=== PATIENT | female | born 1955 | race Caucasian/White ===

== ENCOUNTER 2018-06-07 12:59 | Observation (INO) | payer BC ==
[~2018-06-07] VITALS: Ht 157.5 cm; Wt 125.0 kg
[~2018-06-07 12:59] MED LIST: ACYCLOVIR400 MG PO; ARIMIDEX1 MG PO; ASPIRIN81 MG PO; ATORVASTATIN CA20 MG PO; CALTRATE 600+D1 CHW; CARBOPLATIN IV; CIPRO500 MG OR; CIPROFLOXACN500 MG PO; CLOBETASOL0.053 EX; DIFLUCAN150 MG PO; DILTIAZEM240 M1 PO; DIOVAN HCT160 MG/25 PO; INDERAL 20MG TA20 MG PO; LIDOCAINE5 % EX; LIPITOR10 MG OR; LIPITOR80 MG PO; LORTAB 5/3255 MG PO; MECLIZINE25 M1 PO; MELOXICAM15 MG OR; MYCOSTATIN100000 MG EX; NYSTATIN100000 M3 TOP; PLAVIX75 MG PO; PROPRANOLOL20 MG OR; PROTONIX40 MG PO; PYRIDIUM200 MG PO; TAXOTERE IV; TYLENOL 500MG TAB PO; TYLENOL PM OR; VENTOLIN HFA IN; VITAMIN B PO; ZOFRAN8 MG OR; ZPAK PO
--- NOTE | 2018-06-07 13:00 | NUR ---
PT IMMEDIATELY TO TX ROOM VIA WC, EKG PERFORMED. [facility] 0
--- NOTE | 2018-06-07 13:20 | NUR ---
PT STATES HAD HEART PALPITATIONS AND TINGLING TO LEFT ARM STARTING ON THE , LASTED ABOUT AN HOUR, FEELING LIKE SHE WAS GOING TO PASS OUT. THEN FOR THE NEXT SEVERAL DAYS CHEST PAIN AND TINGLING IN LEFT ARM HAS COME AND GONE SEVERAL TIMES A DAY. ARMANDO, [facility] SC[facility] 0 AT THIS TIME. NOTIFIED AND AT BEDSIDE.
[2018-06-07 13:56] LABS: HEMATOCRIT 39.1 % (37.0-47.0); HEMOGLOBIN 12.8 g/dl (12.0-16.0); IMMATURE GRANULOCYTES 0.5 % (0.0-5.0); MEAN CELL VOLUME 96.1 fL CALC (80.0-100.0); MEAN CORPUSCULAR HGB 31.4 pG CALC (26.0-32.0); MEAN CORPUSCULAR HGB CONC 32.7 g/L CALC (32.0-36.0); NEUT# 4.74 thou/uL (2.00-7.15); RED BLOOD COUNT 4.07 mill/uL (4.20-5.60); RED CELL DISTRI WIDTH 12.7 % (11.5-15.5)
[2018-06-07 14:15] LABS: ANION GAP 15 (6-22 (CALC)); BUN 15 mg/dL (8-23); BUN/CREATININE RATIO 23 (12-20 (CALC)); CARBON DIOXIDE 25 mmol/l (22-30); CHLORIDE 107 mmol/l (95-108); CREATININE 0.6 mg/dL (0.5-1.0); GFR > 60 ML/MIN (>=60 (CALC)); GFR FOR AFR.AMER. > 60 ML/MIN (>=60 (CALC)); POTASSIUM 4.4 mmol/l (3.5-5.1); SODIUM 143 mmol/l (137-146)
--- NOTE | 2018-06-07 14:16 | NUR ---
pt resting quietly, denies discomfort at this time. awaiting labs and CT results. no new complaints voiced.
--- NOTE | 2018-06-07 15:15 | NUR ---
report called to Erin OLIVIER on med surg, pt at bedside, denies current symptoms, denies pain or SOB.
--- NOTE | 2018-06-07 15:23 | NUR ---
Admission Note Report Given to: Erin OLIVIER Transported by: x Wheelchair Stretcher Transported with: x Nurse Transporter x Patent IV [id number] x Trailer Park Manager
--- NOTE | 2018-06-07 15:34 | NUR ---
PT ARRIVED TO THE FLOOR @ 1534 VIA STRECHER WITH OPAL OLIVIER AND . PT WAS ABLE TO AMBULATE WITH STEADY GAIT TO BED. PT SETTLED INTO BED WITH HELP OF YAMILE DOWNEY. BP WAS 178/[address] LEE AND VICKY INTO SEE PT. PT A&0 x3. ANSWERING QUESTIONS APPROPRIATELY. DR LEE EXPLAINED PLAN OF CARE AND TEST TO BE DONE IN THE NEXT FEW DAYS. PT BECAME TEARFUL, ANXIOUS DUE TO ADMISSION. ASSESMENT COMPLETED AT THIS TIME(SEE INTERVENTIONS). LUNGS SOUNDS CLEAR, HR NORMAL, STRONG PULSES, HYPER ACTIVE BOWEL SOUNDS, NO SWELLING OR EDEMA NOTED. #20 IN R HAND FLUSHES WELL NO REDNESS OR EDEMA. PT BEGAN TO SETTLE DOWN AND HAND HARDENER LET PT KNOW THAT BLOOD PRESSURE NEEDED TO BE MONITORED. PT VERBALIZES UNDERSTANDING AND THANKFUL OF CARE. PT ORIENTED TO ROOM AND INTRUCTED TO CALL FOR ASSISTANCE TO RESTROOM. VERBALIZED UNDERSTANDING. CALL LIM IN REACH. WILL CONTINUE TO MONITOR.
--- NOTE | 2018-06-07 17:09 | NUR ---
BLOOD PRESSURE RECHECKED. 184/83 HR 65. VICKY MADE AWARE NEW ORDERS IN
[2018-06-07 17:48] LABS: CHOLESTEROL HDL RATIO 3.6 (<4.4 (CALC))
--- NOTE | 2018-06-07 19:30 | NUR ---
BEDSIDE REPORT RECEIVED FROM MATT AVILA. PT SITTING UP IN BED ALERT AND ORIENTED WITH AT BEDSIDE. DENIES PAIN CURRENTLY. RESPIRATIONS EVEN AND UNLABORED ON ROOM AIR. PLAN OF CARE DISCUSSED. PT ENCOURAGED TO VERBALIZE CONCERNS. STATES UNDERSTANDING AND REQUESTS CLARIFICATION OF HER ALLERGIES; DISCUSSED EACH ALLERGY AND PT SATISFIED. SAFETY MEASURES IN PLACE. CALL LIGHT WITHIN REACH.
[2018-06-07 19:32] VITALS: BP 151/80
[2018-06-07 22:00] VITALS: BP 142/68
[2018-06-07 22:05] VITALS: BP 166/87
[2018-06-07 22:10] VITALS: BP 157/94
--- NOTE | 2018-06-07 23:58 | NUR ---
PT RESTING IN BED WITH EYES CLOSED AND NO SIGNS OF DISTRESS. RESPIRATIONS EVEN AND UNLABORED ON ROOM AIR. IV SITE APPEARS HEALTHY AND FLUSHES. PT REMAINS STAND BY ASSIST DUE TO DX; ORTHOSTATIC BPS COMPLETED EVERY 8 HOURS. NEURO CHECK WNL. NO C/O DIZZINESS OR LIGHT HEADEDNESS. NO REQUESTS OR CONCERNS AT THIS TIME. SAFETY MEASURES IN PLACE. CALL LIGHT WITHIN REACH.
[2018-06-08] VITALS (14 sets, daily range): BP systolic 135–177; BP diastolic 71–93
--- NOTE | 2018-06-08 04:00 | NUR ---
PT UP TO AMBULATE TO THE BATHROOM WITH STEADY GAIT. ORTHOSTATIC BPS NEGATIVE SO FAR. DENIES PAIN. RESPIRATIONS EVEN AND UNLABORED. NO ACUTE CHANGES IN CONDITION THROUGHOUT THE NIGHT. CALL LIGHT WITHIN REACH.
[2018-06-08 06:09] LABS: HEMATOCRIT 39.3 % (37.0-47.0); HEMOGLOBIN 13.3 g/dl (12.0-16.0); IMMATURE GRANULOCYTES 0.3 % (0.0-5.0); MEAN CELL VOLUME 95.2 fL CALC (80.0-100.0); MEAN CORPUSCULAR HGB 32.2 pG CALC (26.0-32.0); MEAN CORPUSCULAR HGB CONC 33.8 g/L CALC (32.0-36.0); NEUT# 4.98 thou/uL (2.00-7.15); RED BLOOD COUNT 4.13 mill/uL (4.20-5.60); RED CELL DISTRI WIDTH 12.8 % (11.5-15.5)
[2018-06-08 06:09] LABS: URINE BILIRUBIN - DIPSTICK NEGATIVE (NEGATIVE); URINE BLOOD DIPSTICK TRACE-LYSED (NEGATIVE); URINE COLOR YELLOW; URINE GLUCOSE - DIPSTICK NEGATIVE (NEGATIVE); URINE KETONE NEGATIVE (NEGATIVE); URINE LEUK ESTERASE SMALL (Negative); URINE NITRITE - DIPSTICK NEGATIVE (Negative); URINE PROTEIN - DIPSTICK NEGATIVE (NEG-TRACE); URINE SPECIFIC GRAVITY 1.015; URINE UROBILINOGEN - DIPSTICK 0.2 E.U./dL (0.2)
[2018-06-08 06:26] LABS: URINE CLARITY CLEAR
[2018-06-08 06:37] LABS: URINE BACTERIA RARE hpf; URINE SQUAMOUS EPITHELIAL CELL FEW EPI/hpf (0-FEW); URINE WBC 0-2 WBC/hpf (0-5)
[2018-06-08 06:54] LABS: ALKALINE PHOSPHATASE 120 u/l (38-126); ANION GAP 12 (6-22 (CALC)); BILIRUBIN, TOTAL 0.6 mg/dL (0.0-1.4); BUN 11 mg/dL (8-23); BUN/CREATININE RATIO 20 (12-20 (CALC)); CARBON DIOXIDE 26 mmol/l (22-30); CHLORIDE 108 mmol/l (95-108); CREATININE 0.6 mg/dL (0.5-1.0); GFR > 60 ML/MIN (>=60 (CALC)); GFR FOR AFR.AMER. > 60 ML/MIN (>=60 (CALC)); POTASSIUM 3.8 mmol/l (3.5-5.1); SODIUM 143 mmol/l (137-146); TOTAL PROTEIN 7.6 g/dL (6.3-8.2)
[2018-06-08 07:00] LABS: SGOT/AST 36 u/l (9-36)
--- NOTE | 2018-06-08 08:26 | NUR ---
PT ASSESSMENT COMPLETE. A/O X3. RESP EVEN AND UNLABORED. LUNG SOUNDS CLEAR. TELE IN PLACE. NO S/S OF ANXIETY. BOWEL SOUNDS ACTIVE X4. ABDOMEN DISTENDED,SOFT. STRONG RADIAL AND PEDAL PULSES. #20 LH SL. FLUSHED AND PATENT. SITE APPEARS HEALTHY. PT DENIES ANY PAIN OR NEEDS. POC DISCUSSED. SAFETY PRECAUTIONS IN PLACE. CALL LIGHT IN REACH. WILL CONTINUE TO MONITOR
--- NOTE | 2018-06-08 12:36 | NUR ---
PT SITTING IN BED WATCHING TELEVISION. NO S/S OF DISTRESS. RESP EVEN AND UNLABORED. TELE IN PLACE. PT DOES NOT EXHIBIT ANY SIGNS OF ANXIETY AT THIS TIME. PT DENIES ANY PAIN OR NEEDS. CALL LIGHT IN REACH. WILL CONTINUE TO MONITOR.
--- NOTE | 2018-06-08 14:20 | NUR ---
ORTHOSTATIC BLOOD PRESSURE COMPLETED AT THIS TIME PER ORDER. SUPINE BP 142/75 HR 72. SITTING BP 150/90 HR 75. STANDING 177/91 HR 78. PT TOLERATED WELL.DENIES ANY DIZZINESS OR LIGHTHEADNESS. WILL CONTINUE TO MONITOR
--- NOTE | 2018-06-08 16:28 | NUR ---
PT RESTING IN BED. RESP EVEN AND UNLABORED. TELE IN PLACE. PT DENIES ANY PAIN OR NEEDS. CALL LIGHT IN REACH. WILL CONTINUE TO MONITOR
--- NOTE | 2018-06-08 19:20 | NUR ---
BEDSIDE REPORT RECEIVED FROM MATT MADRIGAL. PT SITTING UP IN BED ALERT AND OREINTED; WATCHING TV. DENIES ANY ACUTE PAIN; REPORTS MILD CHRONIC BACK PAIN THAT SHE TAKES TRAMADOL FOR AT HOME; DECLINES OFFER FOR PAIN MEDICATIONS. REQUESTS TYLENOL AT HS. RESPIRATIONS EVEN AND UNLABORED ON ROOM AIR. PLAN OF CARE REVIEWED. PT ENCOURAGED TO VERBALIZE CONCERNS. STATES UNDERSTANDING. TO FROM [facility] P[facility]Y TO D/C PT. SAFETY MEASURES IN PLACE. CALL LIGHT WITHIN REACH.
--- NOTE | 2018-06-08 20:14 | NUR ---
PT REPORTS THAT SHE FEELS LIKE HER HEART IS BEATING FAST, BUT IT IS NOT COMPAREABLE TO HER PALPITATIONS SHE EXPERIENCED ON ADMISSION. HEART RATE AT THIS TIME IS 70 BPM. RELAXATION TECHNIQUES ENCOURAGED.
[2018-06-09] VITALS (7 sets, daily range): BP systolic 127–165; BP diastolic 77–97
--- NOTE | 2018-06-09 | NUR ---
PT ASLEEP AT THIS TIME WITH NO SIGNS OF DISTRESS. RESPIRATIONS EVEN AND UNLABORED ON ROOM AIR. PT OCCASIONALLY C/O FEELING HER HEART BEATING FAST; REMAINS SR ON TELE. IV SITE APPEARS HEALTHY AND FLUSHES. STAND BY ASSIST TO BATHROOM. SAFETY MEASURES IN PLACE. CALL LIGHT WITHIN REACH.
--- NOTE | 2018-06-09 04:34 | NUR ---
NO ACUTE CHANGES IN CONDITION THROUGHOUT THE NIGHT. PT HAS NO REQUESTS OR CONCERNS AT THIS TIME. CALL LIGHT WITHIN REACH.
--- NOTE | 2018-06-09 07:20 | NUR ---
REPORT RECEIVED FROM ANGELLA RN, PT LAYING IN BED AWAKE, RESP EVEN AND UNLABORD; PT ENCOURAGE TO CALL FOR ASSISTANCE.
--- NOTE | 2018-06-09 07:41 | NUR ---
ASSESSMENT COMPLETED; PT A/O X4; NO SIGNS OF ANXIETY NOTED; ORTHOSTATIC B/P DONE, SUPINE BP 134/83, HR 73, SITTING BP 129/89, HR 80, STANDING BP 127/97, HR 84; RESP EVEN AND UNLABORED; TELE IN PLACE; LUNGS CLEAR; ABD SOFT & DISTENDED; PULSES STRONG; IV FLUSHED WITH EASE, S/L, SITE APPEARS HEALTHY; POC DISCUSSED; PT ENCOURAGE TO CALL FOR ASSISTANCE. WILL CONTINUE TO MONITOR.
--- NOTE | 2018-06-09 09:35 | NUR ---
PT ASK IF SHE CAN TAKE HER HOME MED, ARIMIXEX 1MG (CANCER PILL); MAURO PERRY ADVISED IT'S OK FOR PT TO TAKE ARIMIXEX, BUT IF SHE REMAIN IN HOSP, PHARMACY WILL NEED THE MEDICATION; PT VERBALIZED UNDERSTANDING; VICKY WILL ADD A ONE TIME DOSE OF ARIMIXEX.
--- NOTE | 2018-06-09 10:05 | NUR ---
MAURO PERRY AT BEDSIDE TO DISCUSS POC; PT SITTING UP IN RECLINER, AT BEDSIDE.
--- NOTE | 2018-06-09 10:18 | NUR ---
PT STATED THAT SHE'S FEELING WEAK, VITALS OBTAINED; PT ENCOURAE TO CALL FOR ASSISTANCE, AT BEDSIDE. MAURO PERRY AWARE.
--- NOTE | 2018-06-09 10:23 | NUR ---
Spoke to patient about medications, patient had no questions at this time
--- NOTE | 2018-06-09 10:52 | NUR ---
DR LEE, AND MAURO PERRY AT BED SIDE TO DISCUSS POC
--- NOTE | 2018-06-09 11:18 | NUR ---
PT WENT DOWN TO A/S VIA W/C, ACCOMPANIED BY A VOLUNTEER AND [employer] P[employer].
--- NOTE | 2018-06-09 11:45 | NUR ---
PT RETURNED FROM A/S VIA W/C ACCOMPANIED BY A VOLUNTEER; NO S/S OF DISTRESS NOTED;
--- NOTE | 2018-06-09 14:41 | NUR ---
Discharge instructions given. Patient verbalizes understanding of same. Discharged in stable condition via Wheelchair to Home with spouse. All belongings sent with pt.
== END 2018-06-09 14:40 | disposition home or self-care (01) | DRG 312 ==
LOC: ED 12:59 → ED-I 14:30 → ED 14:41 → MS2 14:42
PROVIDERS: Family Medicine; Nurse Practitioner Family; ADMIT Internal Medicine Nephrology; ATTEND Internal Medicine Nephrology
DX: R55 Syncope and collapse (principal); Z68.43 Body mass index [BMI] 50.0-59.9, adult; R07.89 Other chest pain; R00.2 Palpitations; I16.0 Hypertensive urgency; I10 Essential (primary) hypertension; E78.5 Hyperlipidemia, unspecified; F43.8 Other reactions to severe stress; E66.9 Obesity, unspecified; G43.909 Migraine, unspecified, not intractable, without status migrainosus; M48.061 Spinal stenosis, lumbar region without neurogenic claudication; Z86.73 Personal history of transient ischemic attack (TIA), and cerebral infarction without residual deficits; Z79.02 Long term (current) use of antithrombotics/antiplatelets; Z63.4 Disappearance and death of family member; Z85.3 Personal history of malignant neoplasm of breast
CPT/HCPCS: G0378

== ENCOUNTER 2021-06-24 06:57 | Emergency (ER) | payer MEDICARE, BC ==
[~2021-06-24] VITALS: Ht 154.9 cm; Wt 120.0 kg
[2021-06-24 07:52] LABS: HEMOGLOBIN 12.2 g/dl (12.0-16.0); IMMATURE GRANULOCYTES 0.1 % (0.0-5.0); MEAN CORPUSCULAR HGB 32.9 pG CALC (26.0-32.0); MEAN CORPUSCULAR HGB CONC 33.9 g/dL CAL (32.0-36.0); NEUT# 5.09 thou/uL (2.00-7.15); RED BLOOD COUNT 3.71 mill/uL (4.20-5.60); RED CELL DISTRI WIDTH 12.5 % (11.5-15.5)
[2021-06-24 07:52] LABS: URINE BILIRUBIN - DIPSTICK NEGATIVE (NEGATIVE); URINE BLOOD DIPSTICK MODERATE (NEGATIVE); URINE COLOR YELLOW; URINE GLUCOSE - DIPSTICK NEGATIVE (NEGATIVE); URINE KETONE NEGATIVE (NEGATIVE); URINE PROTEIN - DIPSTICK NEGATIVE (NEG-TRACE); URINE UROBILINOGEN - DIPSTICK 0.2 E.U./dL (0.2)
[2021-06-24 07:54] LABS: URINE LEUK ESTERASE SMALL (NEGATIVE); URINE NITRITE - DIPSTICK NEGATIVE (Negative)
[2021-06-24 08:02] LABS: URINE SQUAMOUS EPITHELIAL CELL MODERATE EPI/hpf (0-FEW)
[2021-06-24 08:06] LABS: ALBUMIN 4.1 g/dL (3.2-5.0); ALKALINE PHOSPHATASE 106 u/l (38-126); ANION GAP 13 (6-22 (CALC)); BILIRUBIN, TOTAL 0.6 mg/dL (0.0-1.4); BUN 16 mg/dL (8-23); BUN/CREATININE RATIO 23 (12-20 (CALC)); CARBON DIOXIDE 25 mmol/l (22-30); CHLORIDE 107 mmol/l (95-108); CREATININE 0.7 mg/dL (0.5-1.0); GFR > 60 ML/MIN (>=60 (CALC)); GFR FOR AFR.AMER. > 60 ML/MIN (>=60 (CALC)); LIPASE 130 u/l (23-300); POTASSIUM 4.1 mmol/l (3.5-5.1); SGOT/AST 20 u/l (9-36); SODIUM 141 mmol/l (137-146); TOTAL PROTEIN 7.5 g/dL (6.3-8.2)
[2021-06-24] MEDS ORDERED: TAMSULOSIN0.4 MG PO (09:18)
[2021-06-24] MEDS ORDERED: OMNI-PAC300 MG PO (09:18)
[2021-06-24] MEDS ORDERED: TORADOL PO (09:18)
[2021-06-24] MEDS ORDERED: HYDROCO/APAP1 TA9 PO (09:18)
[2021-06-24 10:05] VITALS: BP 144/75
== END 2021-06-24 10:06 | disposition home or self-care (01) ==
LOC: ED 06:57
PROVIDERS: Family Medicine
DX: N20.1 Calculus of ureter (principal); N39.0 Urinary tract infection, site not specified; I10 Essential (primary) hypertension; E78.5 Hyperlipidemia, unspecified; E66.9 Obesity, unspecified; Z86.73 Personal history of transient ischemic attack (TIA), and cerebral infarction without residual deficits; Z85.3 Personal history of malignant neoplasm of breast; Z92.3 Personal history of irradiation; Z92.21 Personal history of antineoplastic chemotherapy; Z87.442 Personal history of urinary calculi

== ENCOUNTER 2022-02-09 10:30 | Emergency (ER) | payer MEDICARE, BC ==
[2022-02-09] VITALS (7 sets, daily range): BP systolic 134–150; BP diastolic 54–69
[~2022-02-09] VITALS: Ht 154.9 cm; Wt 124.7 kg
[~2022-02-09 10:30] MED LIST changes: +HYDROCO/APAP1 TA9 PO; +OMNI-PAC300 MG PO; +TAMSULOSIN0.4 MG PO; +TORADOL PO
[2022-02-09 11:35] LABS: URINE BILIRUBIN - DIPSTICK NEGATIVE (NEGATIVE); URINE BLOOD DIPSTICK TRACE-INTACT (NEGATIVE); URINE COLOR YELLOW; URINE GLUCOSE - DIPSTICK NEGATIVE (NEGATIVE); URINE KETONE NEGATIVE (NEGATIVE); URINE PH 6.5 (4.5-8.0); URINE PROTEIN - DIPSTICK NEGATIVE (NEG-TRACE); URINE UROBILINOGEN - DIPSTICK 0.2 E.U./dL (0.2)
[2022-02-09 11:35] LABS: HEMATOCRIT 36.7 % (37.0-47.0); HEMOGLOBIN 12.4 g/dl (12.0-16.0); IMMATURE GRANULOCYTES 0.3 % (0.0-5.0); MEAN CELL VOLUME 96.1 fL CALC (80.0-100.0); MEAN CORPUSCULAR HGB 32.5 pG CALC (26.0-32.0); MEAN CORPUSCULAR HGB CONC 33.8 g/dL CAL (32.0-36.0); NEUT# 4.7 thou/uL (2.00-7.15); RED BLOOD COUNT 3.82 mill/uL (4.20-5.60); RED CELL DISTRI WIDTH 12.7 % (11.5-15.5)
[2022-02-09 11:37] LABS: URINE LEUK ESTERASE MODERATE (NEGATIVE); URINE NITRITE - DIPSTICK NEGATIVE (Negative)
[2022-02-09 11:39] LABS: URINE BACTERIA FEW hpf; URINE RBC 0-2 RBC/hpf (0-5); URINE SQUAMOUS EPITHELIAL CELL FEW EPI/hpf (0-FEW); URINE TRANSITIONAL EPI. CELLS FEW hpf
[2022-02-09 11:50] LABS: PROTHROMBIN TIME 10.2 SECONDS (9.0-12.5)
[2022-02-09 11:53] LABS: ALKALINE PHOSPHATASE 99 u/l (38-126); ANION GAP 11 (6-22 (CALC)); BILIRUBIN, TOTAL 0.4 mg/dL (0.0-1.4); BUN 15 mg/dL (8-23); BUN/CREATININE RATIO 23 (12-20 (CALC)); CARBON DIOXIDE 27 mmol/l (22-30); CHLORIDE 107 mmol/l (95-108); CREATININE 0.7 mg/dL (0.5-1.0); GFR FOR AFR.AMER. > 60 ML/MIN (>=60 (CALC)); GFR OTHER RACES > 60 ML/MIN (>=60 (CALC)); POTASSIUM 4.1 mmol/l (3.5-5.1); SGOT/AST 21 u/l (9-36); SODIUM 141 mmol/l (137-146); TOTAL PROTEIN 7.1 g/dL (6.3-8.2)
== END 2022-02-09 12:35 | disposition left against medical advice (07) ==
LOC: ED 10:30 → ED-I 11:25 → ED 12:35
PROVIDERS: Emergency Medicine
DX: G45.9 Transient cerebral ischemic attack, unspecified (principal); N39.0 Urinary tract infection, site not specified; I10 Essential (primary) hypertension; E78.5 Hyperlipidemia, unspecified; Z85.3 Personal history of malignant neoplasm of breast; Z86.73 Personal history of transient ischemic attack (TIA), and cerebral infarction without residual deficits; Z92.21 Personal history of antineoplastic chemotherapy; Z92.3 Personal history of irradiation; Z91.041 Radiographic dye allergy status; Z91.19 Patient's noncompliance with other medical treatment and regimen

== ENCOUNTER 2022-10-28 15:53 | Emergency (ER) | payer MEDICARE, BC ==
[~2022-10-28] VITALS: Ht 154.9 cm; Wt 122.0 kg
[2022-10-28 15:56] VITALS: BP 149/80
[2022-10-28 16:31] VITALS: BP 136/72
[2022-10-28 16:37] LABS: BASO% 0.3 % (0-3); EOS% 2.3 % (0-8); HEMOGLOBIN 12.1 g/dl (12.0-16.0); IMMATURE GRANULOCYTES 0.3 % (0.0-5.0); LYMPH% 26.8 % (15-41); MEAN CELL VOLUME 98.7 fL CALC (80.0-100.0); MEAN CORPUSCULAR HGB 31.4 pG CALC (26.0-32.0); MEAN CORPUSCULAR HGB CONC 31.8 g/dL CAL (32.0-36.0); NEUT# 4.98 thou/uL (2.00-7.15); NEUT% 64.3 % (42-76); RED BLOOD COUNT 3.85 mill/uL (4.20-5.60); RED CELL DISTRI WIDTH 12.7 % (11.5-15.5)
[2022-10-28 16:47] VITALS: BP 135/77
[2022-10-28 16:53] LABS: PROTHROMBIN TIME 9.8 SECONDS (9.0-12.5)
[2022-10-28 16:55] LABS: ALBUMIN 4.2 g/dL (3.2-5.0); ALKALINE PHOSPHATASE 103 u/l (38-126); ANION GAP 13 (6-22 (CALC)); BUN 13 mg/dL (8-23); BUN/CREATININE RATIO 20 (12-20 (CALC)); CARBON DIOXIDE 27 mmol/l (22-30); CHLORIDE 105 mmol/l (95-108); CREATININE 0.6 mg/dL (0.5-1.0); GFR FOR AFR.AMER. > 60 ML/MIN (>=60 (CALC)); GFR OTHER RACES > 60 ML/MIN (>=60 (CALC)); POTASSIUM 4.2 mmol/l (3.5-5.1); SGOT/AST 23 u/l (9-36); SODIUM 140 mmol/l (137-146); TOTAL PROTEIN 7.7 g/dL (6.3-8.2)
[2022-10-28 16:58] LABS: BILIRUBIN, TOTAL 0.2 mg/dL (0.02-1.3)
[2022-10-28 17:00] VITALS: BP 123/52
[2022-10-28 17:15] VITALS: BP 141/72
[2022-10-28 17:46] VITALS: BP 141/72
== END 2022-10-28 18:00 | disposition home or self-care (01) ==
LOC: ED 15:53
PROVIDERS: Family Medicine
DX: G45.9 Transient cerebral ischemic attack, unspecified (principal); E66.9 Obesity, unspecified; I10 Essential (primary) hypertension; E78.00 Pure hypercholesterolemia, unspecified; Z85.3 Personal history of malignant neoplasm of breast; Z92.21 Personal history of antineoplastic chemotherapy; Z92.3 Personal history of irradiation